=== PATIENT | male | born 1975 | race Caucasian/White ===

== ENCOUNTER 2016-09-09 02:40 | Emergency (ER) | payer OTHER ==
[~2016-09-09] VITALS: Ht 167.6 cm; Wt 63.5 kg
[2016-09-09 02:50] VITALS: BP 137/89
--- NOTE | 2016-09-09 03:00 | NUR ---
PT TAKEN TO BED 7
--- NOTE | 2016-09-09 03:00 | NUR ---
PATIENT PRESENTS TO ED WITH . PT STATES ON AND OFF CHEST PAIN X1 MONTH . DENIES N/V/D; SKIN IS PINK/WARM/DRY; AAOX4 WITH EVEN AND STEADY GAIT; LUNGS CLEAR BL; HR EVEN AND REGULAR; PT DENIES ANY FEVER, CP, SOB, OR COUGH AT THIS TIME; PATIENT STATES PAIN OF 4/10 AT THIS TIME; VSS; PATIENT POSITIONED FOR COMFORT; HOB ELEVATED; BEDRAILS UP X2; BED DOWN. ER MD MADE AWARE OF PT STATUS.
[2016-09-09] MEDS ORDERED: ASPIRIN 325 MG TAB PO ONE (03:05)
--- NOTE | 2016-09-09 03:45 | NUR ---
X-Ray at bedside.
--- NOTE | 2016-09-09 05:11 | NUR ---
PT TAKEN TO CT
--- NOTE | 2016-09-09 05:24 | NUR ---
PT RETURN FROM CT
[2016-09-09 06:17] VITALS: BP 128/78
--- NOTE | 2016-09-09 06:17 | NUR ---
Patient discharged with v/s stable. Written and verbal after care instructions given and explained. Patient alert, oriented and verbalized understanding of instructions. Ambulatory with steady gait. All questions addressed prior to discharge. ID band removed. Patient advised to follow up with PMD. Rx of ALBUTEROL, LEVAQUIN, DEXTROMETHORPHAN HYDROBROMIDE given. Patient educated on indication of medication including possible reaction and side effects. Opportunity to ask questions provided and answered.
== END 2016-09-09 06:17 | disposition home or self-care (01) ==
LOC: MED 02:40
DX: R07.89 Other chest pain (principal); R05 Cough; F17.210 Nicotine dependence, cigarettes, uncomplicated; R06.02 Shortness of breath; Z71.6 Tobacco abuse counseling
CPT/HCPCS: 36415; 71010; 71250; 80053; 83880; 84484; 85025; 99285; Q0092

== ENCOUNTER 2017-07-04 11:12 | Emergency (ER) | payer OTHER ==
[~2017-07-04] VITALS: Ht 165.1 cm; Wt 74.8 kg
[2017-07-04 11:21] VITALS: BP 117/68
--- NOTE | 2017-07-04 12:11 | NUR ---
C/O LEFT RIB PAIN S/P FALLING ONTO A CHAIR YESTERDAY NO DISCOLORATION NO SWELLING NO CREPITUS NOTED . DENIES N/V/D; SKIN IS PINK/WARM/DRY; AAOX4 WITH EVEN AND STEADY GAIT; LUNGS CLEAR BL; HR EVEN AND REGULAR; PT DENIES ANY FEVER, CP, SOB, OR COUGH AT THIS TIME; PATIENT STATES PAIN OF 5/10 AT THIS TIME; VSS; ER MD MADE AWARE OF PT STATUS.
[2017-07-04 14:15] VITALS: BP 120/65
== END 2017-07-04 14:15 | disposition home or self-care (01) ==
LOC: MED 11:12
DX: S20.20XA Contusion of thorax, unspecified, initial encounter (principal); J45.909 Unspecified asthma, uncomplicated; W07.XXXA Fall from chair, initial encounter; Y93.89 Activity, other specified; Y92.89 Other specified places as the place of occurrence of the external cause; Y99.8 Other external cause status
CPT/HCPCS: 71101; 99284

== ENCOUNTER 2017-12-04 05:10 | Emergency (ER) | payer OTHER ==
[~2017-12-04] VITALS: Ht 165.1 cm; Wt 72.6 kg
[2017-12-04 05:11] VITALS: BP 141/82
--- NOTE | 2017-12-04 05:22 | NUR ---
Patient ambulated to bed 12. RN evaluating patient at bedside.
--- NOTE | 2017-12-04 05:30 | NUR ---
PT BIB SELF C/O RASH TO LOWER ABD X1 MONTH, WORSENING THIS AM. PT STATES HE USED PEROXIDE TO CLEAN AND NOW AREA [place]ID[place]. AFFECTED AREA IS RED, INFLAMMED, NO BLEEDING OR D/C NOTED. PT STATES HE HAS ITCHINESS AND PAIN TO AREA. NO PMH, NKDA
--- NOTE | 2017-12-04 06:02 | NUR ---
PENDING D/C PAPERWORK FROM DR ARAUJO.
[2017-12-04] MEDS ORDERED: NON ADHERENT DRESSING TP SCH (06:25)
[2017-12-04] MEDS ORDERED: SULFAMETH/TRIMETH DS 800/160MG 1 TAB PO ONE (06:25)
[2017-12-04] MEDS ORDERED: diphenhydrAMINE 50 MG CAP PO ONE (06:25)
--- NOTE | 2017-12-04 06:30 | NUR ---
GRZEGORZ D/C PAPERWORK FROM DR ARAUJO.
[2017-12-04] MEDS ORDERED: SULFAMETH/TRIMETH DS 800/160MG 1 TAB ONE (06:44)
--- NOTE | 2017-12-04 06:45 | NUR ---
XEROFOAM DRESSING APPLIED W/ NON ADHERANT DRESSING AND PAPER TAPE, PT TOLERATED WELL.
[2017-12-04 07:01] VITALS: BP 140/80
--- NOTE | 2017-12-04 07:01 | NUR ---
Patient discharged with v/s stable. Written and verbal after care instructions given and explained. Patient alert, oriented and verbalized understanding of instructions. Ambulatory with steady gait. All questions addressed prior to discharge. ID band removed. Patient advised to follow up with PMD. Rx of DOXYCYCLINE, MUPRIROCIN,BACTRIM, HIBICLENS given. Patient educated on indication of medication including possible reaction and side effects. Opportunity to ask questions provided and answered.
== END 2017-12-04 07:01 | disposition home or self-care (01) ==
LOC: MED 05:10
DX: A49.02 Methicillin resistant Staphylococcus aureus infection, unspecified site (principal); J45.909 Unspecified asthma, uncomplicated
CPT/HCPCS: 99283; Q0163

== ENCOUNTER 2018-06-07 00:40 | Emergency (ER) | payer OTHER ==
[~2018-06-07] VITALS: Ht 165.1 cm; Wt 74.8 kg
--- NOTE | 2018-06-07 00:44 | NUR ---
PT TAKEN TO BED 4
[2018-06-07 00:47] VITALS: BP 156/87
--- NOTE | 2018-06-07 00:57 | NUR ---
Dr. Rosado evaluating patient at bedside.
[2018-06-07] MEDS ORDERED: predniSONE 20 MG TAB PO ONE (01:00)
--- NOTE | 2018-06-07 01:00 | NUR ---
PT TO ED WITH C/O RASH TO L LARM AND RADIATING TO FACE. PT DENIES NEW FOOD, SOAP, OR LOTIONS. NO SOB. NO CP. PT PLACED INTO BED, PENDING MD LIND.
[2018-06-07 01:18] VITALS: BP 156/87
--- NOTE | 2018-06-07 01:18 | NUR ---
Patient discharged with v/s stable. Written and verbal after care instructions given and explained. Patient alert, oriented and verbalized understanding of instructions. Ambulatory with steady gait. All questions addressed prior to discharge. ID band removed. Patient advised to follow up with PMD. Rx of PREDNISONE, BENEDRYL, PERMETHRIN CREAM given. Patient educated on indication of medication including possible reaction and side effects. Opportunity to ask questions provided and answered.
== END 2018-06-07 01:18 | disposition home or self-care (01) ==
LOC: MED 00:40
DX: R21 Rash and other nonspecific skin eruption (principal); J45.909 Unspecified asthma, uncomplicated; F17.210 Nicotine dependence, cigarettes, uncomplicated
CPT/HCPCS: 81002; 99283; J7512; Q0163

== ENCOUNTER 2018-08-08 03:19 | Emergency (ER) | payer OTHER ==
[~2018-08-08] VITALS: Ht 165.1 cm; Wt 74.8 kg
[2018-08-08 03:23] VITALS: BP 140/83
--- NOTE | 2018-08-08 03:29 | NUR ---
PT AMBULATED TO BED 8.
[2018-08-08 03:30] VITALS: BP 140/83
--- NOTE | 2018-08-08 03:30 | NUR ---
43 Y/O M PRESENTED TO ED WITH C/O RASH TO RLQ AND LUE. AAO X4. PER PT "HAD RASH FOR 1 YEAR, BUT THIS TIME IT IS MUCH WORSE. I CANT STOP SCRATCHING IT. I THINK IT MIGHT BE FROM STRESS". 4/10 SHARP PAIN TO RLQ. REDNESS AND EXCORIATION TO RLQ. TENDER TO TOUCH. PER PT USED CORTIZONE CREAM WITH NO RELIEF. ERMD NOTIFIED. WILL CONTINUE TO MONITOR.
--- NOTE | 2018-08-08 04:00 | NUR ---
Patient discharged with v/s stable. Written and verbal after care instructions given and explained. Patient alert, oriented and verbalized understanding of instructions. Ambulatory with steady gait. All questions addressed prior to discharge. ID band removed. Patient advised to follow up with PMD. Rx of Prednisone adn Hydrocortisone ointment given. Patient educated on indication of medication including possible reaction and side effects. Opportunity to ask questions provided and answered.
== END 2018-08-08 04:00 | disposition home or self-care (01) ==
LOC: MED 03:19
DX: R21 Rash and other nonspecific skin eruption (principal); R10.30 Lower abdominal pain, unspecified; J45.909 Unspecified asthma, uncomplicated; F17.200 Nicotine dependence, unspecified, uncomplicated
CPT/HCPCS: 99283

== ENCOUNTER 2020-03-16 01:59 | Emergency (ER) | payer OTHER ==
[~2020-03-16] VITALS: Ht 165.1 cm; Wt 77.1 kg
[2020-03-16 02:03] VITALS: BP 141/81
--- NOTE | 2020-03-16 02:05 | NUR ---
To ED bed 06
--- NOTE | 2020-03-16 02:10 | NUR ---
PT BIB SELF FOR C/O 05/10 R EAR ACHE X 1 HOUR. PER PT" I THINK I HEARD SOMETHING FLY IN THERE AND I TRIED TO TAKE IT OUT BUT I THINK IT GOT PUSHED IN WORSE." PT STATES PAIN 05/10. "IT FEELS MORE LIKE A THROBBING DISCOMFORT." PT DENIES ANY OTHER TRAUMA TO EAR. DENIES DRAINAGE FROM EAR. DENIES DECREASE IN HEARING. MEDHX: DENIES ALLERGIES: NKA
--- NOTE | 2020-03-16 02:16 | NUR ---
ERMD AT BEDSIDE.
[2020-03-16 02:30] VITALS: BP 138/84
--- NOTE | 2020-03-16 02:30 | NUR ---
Patient discharged with v/s stable. Written and verbal after care instructions given and explained. Patient alert, oriented and verbalized understanding of instructions. Ambulatory with steady gait. All questions addressed prior to discharge. ID band removed. Patient advised to follow up with PMD. Rx of OFLOXACIN given. Patient educated on indication of medication including possible reaction and side effects. Opportunity to ask questions provided and answered.
== END 2020-03-16 02:30 | disposition home or self-care (01) ==
LOC: MED 01:59
DX: H92.01 Otalgia, right ear (principal); J45.909 Unspecified asthma, uncomplicated
CPT/HCPCS: 99283

== ENCOUNTER 2020-12-11 02:35 | Emergency (ER) | payer OTHER ==
[~2020-12-11] VITALS: Ht 165.1 cm; Wt 77.1 kg
[2020-12-11 02:42] VITALS: BP 124/64
--- NOTE | 2020-12-11 02:47 | NUR ---
TO LOBBY FOLLOWING TRIAGE
--- NOTE | 2020-12-11 03:04 | NUR ---
SWABBED AND COLLECTED ANA AND NOVEL. SENT TO LAB RECEIVED BY ERROL, LAB
[2020-12-11] MEDS ORDERED: BENZ-196 PO (06:03)
[2020-12-11 06:15] VITALS: BP 124/64
--- NOTE | 2020-12-11 06:15 | NUR ---
Patient discharged with v/s stable. Written and verbal after care instructions given and explained. Patient alert, oriented and verbalized understanding of instructions. Ambulatory with steady gait. All questions addressed prior to discharge. ID band removed. Patient advised to follow up with PMD. Rx of jose enrique sarmiento given. Patient educated on indication of medication including possible reaction and side effects. Opportunity to ask questions provided and answered.
== END 2020-12-11 06:15 | disposition home or self-care (01) ==
LOC: MED 02:35
DX: R05 Cough (principal); Z20.822 Contact with and (suspected) exposure to COVID-19
CPT/HCPCS: 71045; 87426; 99284; U0003